=== PATIENT | male | born 1970 | race Caucasian/White ===

== ENCOUNTER 2019-07-17 20:09 | Emergency (ER) | payer BC, OTHER ==
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
[2019-07-17] MEDS ORDERED: Diphtheria,Pertussis(Acell),Tetanus Vaccine 0.5 ML Syringe IM ONE (20:35)
[2019-07-17 22:09] VITALS: BP 125/81; PULSE 83
== END 2019-07-17 21:10 | disposition home or self-care (01) ==
LOC: MW.ED 20:09
DX: S61.412A Laceration without foreign body of left hand, initial encounter (principal); Z23 Encounter for immunization; W26.0XXA Contact with knife, initial encounter
CPT/HCPCS: 12002; 90471; 90715; 99282; J2001

== ENCOUNTER 2019-07-29 11:48 | Emergency (ER) | payer BC ==
[2019-07-29 12:14] VITALS: BP 123/77; PULSE 81
== END 2019-07-29 12:00 | disposition left against medical advice (07) ==
LOC: MW.ED 11:48
DX: Z53.21 Procedure and treatment not carried out due to patient leaving prior to being seen by health care provider (principal)

== ENCOUNTER 2020-04-18 10:58 | Emergency (ER) | payer OTHER, BC ==
[2020-04-18] MEDS ORDERED: Bacitracin Oint 1 GM U/D Packet TOP ONE (11:09)
[2020-04-18] MEDS ORDERED: Lidocaine 1% PF 2 ML SDV INJECT ONE (11:09)
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
[2020-04-18] MEDS ORDERED: Acetaminophen 500 MG Tab PO ONE (11:20)
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
[2020-04-18 12:41] VITALS: BP 114/84; PULSE 86
== END 2020-04-18 12:40 | disposition home or self-care (01) ==
LOC: MW.ED 10:58
DX: S01.511A Laceration without foreign body of lip, initial encounter (principal); S09.90XA Unspecified injury of head, initial encounter; W22.8XXA Striking against or struck by other objects, initial encounter
CPT/HCPCS: 12011; 70450; 70486; 99283; A9270